=== PATIENT | female | born 1935 | race Caucasian/White ===

== ENCOUNTER 2016-06-21 15:38 | Inpatient (IN) | payer OTHER, BC ==
[~2016-06-21] VITALS: Ht 162.6 cm; Wt 81.6 kg
--- NOTE | ~2016-06-21 | H ---
[facility] [address] [place] [address] HISTORY AND PHYSICAL Name: MITCHELL TRAORE Room #: 429-P [facility] [place] M.R.#: [id number] Admission: 06/21/16 Attend Phys: Mica Ortiz Discharge: 06/22/16 Date of : 31 Report #: [id number] THIS REPORT FOR: //name// CC: Rakesh Ortiz DATE OF SERVICE: 06/21/2016 CHIEF COMPLAINT: Shortness of breath. HISTORY OF PRESENT ILLNESS: The patient is an 81-year-old female with mild asthma, who comes to the hospital with progressively worsening shortness of breath. The patient states that recently she had sinusitis, and she recovered well. A few days ago, she was doing yard work with her and she states that she was exposed to pollen. She became short of breath a few days ago, then spontaneously it got better. Last night, she became short of breath again. The patient denies wheezes, but reports bilateral chest tightness. She presented to the emergency room. In the ER after one dose of the steroids and breathing treatments, the patient feels much better. She is now at her baseline. She feels comfortable, and denies shortness of breath. She was also found to have low magnesium, that was replaced. PAST MEDICAL HISTORY: 1. Mild asthma. 2. Degenerative joint disease. 3. Hypothyroidism. 4. Hypertension. 5. History of hepatitis A. 6. Dyslipidemia. CURRENT MEDICATIONS: The patient is on Hyzaar 50/12.5 mg a day, montelukast 10 mg a day, aspirin 81 mg a day, Lipitor 20 mg a day, Miracle 180 mg a day, clonidine patch 0.1 mg q.72 hours, and potassium supplementation. FAMILY HISTORY: Reviewed and not pertinent to the patient's current condition. SOCIAL HISTORY: The patient lives with her . She does not smoke cigarettes and does not drink alcohol. REVIEW OF SYSTEMS: As above in HPI section, all others negative. PHYSICAL EXAMINATION: GENERAL: The patient is a healthy looking elderly female who is in no apparent distress. [address] [address] HISTORY AND PHYSICAL Name: MITCHELL TRAORE Room #: 429-P [facility] IN M.R.#: [id number] Admission: 06/21/16 Attend Phys: Mica Toribio Chanajen Discharge: 06/22/16 Date of : 31 Report #: [id number] VITAL SIGNS: Her blood pressure is 148/64, heart rate is 92, respiration is 19, and temperature is 97.9. HEENT: Pupils are equal. Eye movements are normal. The patient has anicteric sclerae. NECK: Supple. She has no thyromegaly. The patient has no JVD or carotid bruits. RESPIRATORY: Chest moves symmetrically with breathing. She has coarse respiratory sounds, and scattered wheezes. CARDIOVASCULAR: The patient has regular rhythm and rate. She has no murmurs, gallops or rubs. GASTROINTESTINAL: Abdomen is soft, nondistended and nontender. Bowel sounds are normal. The patient has no hepatomegaly or splenomegaly. MUSCULOSKELETAL: There is no edema, cyanosis or clubbing. Range of motion is normal. NEUROLOGIC: The patient is alert and oriented x3. Her examination is nonfocal. SKIN: The patient has no skin lesions. LABORATORY DATA: Basic metabolic profile and CMP are essentially normal. Magnesium is low at 1.5. Chest x-ray is clear. EKG shows normal sinus rhythm. ASSESSMENT AND PLAN: 1. Shortness of breath and chest tightening, without significant wheezes. Symptoms have resolved after breathing treatment and steroids. The patient is already doing much better. The patient likely has mild asthma exacerbation. Breathing treatments will be continued, and she will be treated with IV steroids. This can probably change to p.o. steroids soon. The patient's clinical presentation is somewhat atypical for asthma exacerbation, so we are checking BNP, and D-dimers. If abnormal, we will proceed with further evaluation with appropriate testing. 2. Hypertension, acceptable control. Hyzaar and clonidine will be continued unchanged. 3. Dyslipidemia. The patient is on Lipitor. 4. Deep venous thrombosis prophylaxis. SubQ Lovenox. <ELECTRONICALLY SIGNED> By: Topher Abreu MD 06/24/16 1231 32 35 Topher Abreu MD /nt
--- NOTE | ~2016-06-21 | EKG ---
[place] [address] [facility] [place] [address] ELECTROCARDIOGRAM REPORT Name: MITCHELL TRAORE [id number] Admission: 06/21/16 Attend Phys: Discharge: Date of : 31 Report #: [id number] THIS REPORT FOR: //name// [facility] ED Test Date: 2016-06-21 Test Time: 15:45:59 Pat Name: MITCHELL TRAORE Department: Room: Gender: F Parts Expediter: Gianna BRUNER : 1935 Requested By: Blanca Hernandes Order Number: [id number] MD: Koby García Measurements Intervals [place] Rate: 79 P: 14 MI: 200 QRS: -24 QRSD: 92 T: 10 QT: 384 QTc: 441 Interpretive Statements Sinus rhythm Borderline left axis deviation Compared to ECG 07/10/2014 10:56:29 ST (T wave) deviation no longer present Electronically Signed On 06-21-2016 17:02:58 CDT by Koby García [email or web address] <ELECTRONICALLY SIGNED> By: Koby García MD 06/21/16 1702 1545 1545 MD VARGHESE Merchant
[~2016-06-21 15:38] MED LIST: ADVAIRDISKUS; ALLEGRA ALLERG180 MG PO; ALLEGRA180 MG; ASPIRIN EC81 M1 PO; ATROVENT30 ML; BACTRIM DS TAB1 EACH PO; BENICAR40 MG; CATAPRES-TTS 10.1 M1; HYZAAR 50-12.51 EACH; K-DUR10 MEQ; LEVOXYL50 MCG; LIPITOR20 MG; MAG-OX 400 TAB400 M1 PO; MECLIZINE 25 MG25 M1 PO; SINGULAIR 10 MG10 M1; ZETIA10 MG
[2016-06-21 15:41] VITALS: BP 166/70
[2016-06-21 17:16] LABS: HEMATOCRIT 37.9 % (37.0-47.0); HEMOGLOBIN 12.7 gm/dL (12.0-15.0); MCH 30.8 pg (26.0-34.0); MCHC 33.6 g/dL (28.0-37.0); MCV 91.8 fL (80.0-100.0); PLATELET COUNT 187 thou/uL (150-400); RBC 4.13 mil/uL (4.20-5.00); RDW 13.4 % (10.5-14.5)
[2016-06-21 17:31] LABS: ANION GAP 11 mmol/L (7-16); BUN 12 mg/dL (7-18); CALCIUM 8.9 mg/dL (8.5-10.1); CHLORIDE 100 mmol/L (98-107); CO2 25 mmol/L (21-32); CREATININE 0.7 mg/dL (0.6-1.0); GLUCOSE 104 mg/dL (74-106); POTASSIUM 3.6 mmol/L (3.5-5.1); SODIUM 136 mmol/L (136-145)
[2016-06-21 17:37] LABS: MANUAL DIFF YES
[2016-06-21 17:38] LABS: ALBUMIN 3.9 g/dL (3.4-5.0); ALKALINE PHOSPHATASE 65 U/L (46-116); SGOT 15 U/L (15-37); SGPT 16 U/L (30-65); TOTAL BILIRUBIN 0.4 mg/dL (<0.1-1.0); TOTAL PROTEIN 7.5 g/dL (6.4-8.2); TROPONIN-I < 0.04 ng/mL (<0.04-0.07)
[2016-06-21 18:04] LABS: ABSOLUTE NEUTROPHILS 4.4 thou/uL (1.4-8.2); ATYPICAL LYMPHS 2 %; TOTAL CELL COUNT 100
[2016-06-21 19:31] VITALS: BP 148/64
[2016-06-21 20:00] VITALS: BP 147/63
[2016-06-22 04:30] VITALS: BP 139/67
[2016-06-22 08:03] VITALS: BP 139/72
[2016-06-22] MEDS ORDERED: VENTOLIN HFA 1818 GM INH (14:39)
[2016-06-22] MEDS ORDERED: PREDNISONE 20 M20 MG PO (14:39)
[2016-06-22 15:03] VITALS: BP 139/72
== END 2016-06-22 17:22 | disposition home or self-care (01) | DRG 203 ==
LOC: ER 15:38 → EROBS 18:37 → 4E 19:49
PROVIDERS: Nurse Practitioner Family
DX: J45.901 Unspecified asthma with (acute) exacerbation (principal); I10 Essential (primary) hypertension; M19.90 Unspecified osteoarthritis, unspecified site; E03.9 Hypothyroidism, unspecified; E78.5 Hyperlipidemia, unspecified; Z87.01 Personal history of pneumonia (recurrent); Z88.6 Allergy status to analgesic agent; Z90.710 Acquired absence of both cervix and uterus; Z88.1 Allergy status to other antibiotic agents
CPT/HCPCS: 10183

== ENCOUNTER → 2016-07-08 | Outpatient (CLI) | payer OTHER, BC ==
[~2016-07-08] MED LIST changes: +PREDNISONE 20 M20 MG PO; +VENTOLIN HFA 1818 GM INH
== END ==
LOC: RAD 09:17
DX: J45.998 Other asthma (principal); R06.02 Shortness of breath